=== PATIENT | female | born 1990 ===

== ENCOUNTER → 2018-07-06 14:27 | Outpatient (REF) | payer OTHER, SELFPAY ==
[2018-07-06 15:34] LABS: HCG Quantitative /Beta subunit < 2.39 mIU/mL
== END ==
LOC: LAB 14:27
PROVIDERS: Visit Provider Nurse Practitioner Obstetrics & Gynecology
DX: N91.2 Amenorrhea, unspecified (principal)
CPT/HCPCS: 84702